=== PATIENT | female | born 1975 | race Caucasian/White ===

== ENCOUNTER 2022-09-15 13:06 | Outpatient (CLI) | payer BC, SELFPAY ==
--- NOTE | 2022-09-15 13:20 | CRLHL7_ITS ---
For Patients: As a result of the Century Cures Act, medical imaging exams and procedure reports are released immediately into your electronic medical record. You may view this report before your referring provider. If you have questions, please contact your health care provider. BILATERAL SCREENING MAMMOGRAM WITH COMPUTER-AIDED DETECTION AND TOMOSYNTHESIS TECHNIQUE: CC and MLO views were obtained. These mammographic images have been obtained using full-field digital technique. These mammographic images were interpreted with the benefit of computer-aided detection. Breast Tomosynthesis was used in this interpretation. COMPARISON FILM: 02/18/21, 02/14/20, 11/29/18. FINDINGS: There are scattered areas of fibroglandular density IMPRESSION: There is no radiographic evidence for malignancy. ASSESSMENT: BI-RADS Category 1: Negative RECOMMENDATION: Routine screening mammogram in 1 year. A lay language report of this examination will be provided to the patient. Basesm Ziegler M.D. Diagnostic Radiologist [email or web address] JENNY/Dictated by: Bassem Ziegler MD @ 09/16/2022 11:18:00 AM (Electronically Signed)
== END 2022-09-15 13:07 | disposition home or self-care (01) ==
PROVIDERS: PCP Physician Assistant; Visit Provider Physician Assistant
DX: Z12.31 Encounter for screening mammogram for malignant neoplasm of breast (principal)
CPT/HCPCS: 77063; 77067

== ENCOUNTER 2023-07-08 10:57 | Outpatient (CLI) | payer BC, SELFPAY ==
--- NOTE | 2023-07-08 11:00 | CRLHL7_ITS ---
For Patients: As a result of the Century Cures Act, medical imaging exams and procedure reports are released immediately into your electronic medical record. You may view this report before your referring provider. If you have questions, please contact your health care provider. INDICATION: dysmenorrhea COMPARISON: none TECHNIQUE: 2D norton scale and color Doppler images were acquired of the pelvis using a transabdominal and transvaginal approach. FINDINGS: Sonographic images demonstrate a normal size and smooth outer contour of the uterus. Uterus measures 9.7 cm in length by 4.9 cm in AP diameter by 6.2 cm in transverse dimension. The myometrium has a heterogeneous echotexture. The endometrial lining measures 15 mm in composite thickness. The right ovary measures 4.0 x 1.9 x 1.7 cm in size and the left ovary measures 2.6 x 1.4 x 1.2 cm. The ovaries demonstrate normal arterial and venous blood flow on color Doppler analysis. Trace pelvic free fluid noted. Small hemorrhagic cyst right ovary measuring 2.1 x 1.3 x 1.6 cm. IMPRESSION: Endometrium is heterogeneous and measures 15 millimeters. Dictated by Bassem Ziegler MD @ 07/08/2023 12:16:41 PM (Electronically Signed)
== END 2023-07-08 10:58 | disposition home or self-care (01) ==
LOC: US 10:59
PROVIDERS: PCP Family Medicine; Visit Provider Physician Assistant
DX: N94.6 Dysmenorrhea, unspecified (principal); R93.89 Abnormal findings on diagnostic imaging of other specified body structures
CPT/HCPCS: 76830; 76856; 93976

== ENCOUNTER 2023-07-13 09:06 | Outpatient (CLI) | payer BC, SELFPAY ==
--- NOTE | 2023-07-13 09:15 | CRLHL7_ITS ---
For Patients: As a result of the Century Cures Act, medical imaging exams and procedure reports are released immediately into your electronic medical record. You may view this report before your referring provider. If you have questions, please contact your health care provider. INDICATION: Back pain. Radiculopathy. COMPARISON: None. TECHNIQUE: Sagittal T1, T2, and STIR sequences. Axial T1 and T2 weighted sequences. FINDINGS: Normal vertebral body alignment. No fractures. No vertebral body loss of height. No spondylolisthesis. No ligamentous injury. Normal marrow signal. No suspicious osseous lesions. Normal conus terminates at L1. Vertebral body hemangioma L1. Scattered smaller multilevel vertebral body hemangiomas. T12-L1 L1-2 L2-3: No spinal canal or neural foraminal narrowing. L3-4: No spinal canal or neural foraminal narrowing. L4-5: Annular bulge. No narrowing of spinal canal. No neural foraminal narrowing. L5-S1: Disc generation posted disc bulge. No narrowing of spinal canal. No impingement of the traversing S1 nerve roots. Mild narrowing of the bilateral foramina. Normal visualized SI joints. Normal paraspinal soft tissues. IMPRESSION: 1. Normal alignment. No fractures. 2. Lumbar spondylosis. 3. At L5-S1, mild narrowing of the bilateral neural foramina. 4. No spinal canal or neural foraminal narrowing at the remaining levels Dictated by Judah Mullins MD @ 07/13/2023 10:49:33 AM (Electronically Signed)
== END 2023-07-13 09:07 | disposition home or self-care (01) ==
LOC: MRI 09:06
PROVIDERS: PCP Family Medicine; Visit Provider Family Medicine
DX: M54.16 Radiculopathy, lumbar region (principal); M51.27 Other intervertebral disc displacement, lumbosacral region; M47.896 Other spondylosis, lumbar region; M54.9 Dorsalgia, unspecified
CPT/HCPCS: 72148

== ENCOUNTER 2024-12-06 13:31 | Outpatient (CLI) | payer BC, SELFPAY | END 2024-12-06 13:32 | disposition home or self-care (01) | PROVIDERS: PCP Registered Nurse; Visit Provider Registered Nurse | DX: E04.1 Nontoxic single thyroid nodule (principal) | CPT/HCPCS: 84443; 84481; 86376 ==

== ENCOUNTER 2024-12-13 09:15 | Outpatient (CLI) | payer BC, SELFPAY ==
--- NOTE | 2024-12-13 09:15 | CRLHL7_ITS ---
For Patients: As a result of the Century Cures Act, medical imaging exams and procedure reports are released immediately into your electronic medical record. You may view this report before your referring provider. If you have questions, please contact your health care provider. INDICATION: Multinodular goiter. Follow up. TECHNIQUE: Conventional two-dimensional norton-scale ultrasound of the thyroid gland. COMPARISON: Thyroid ultrasound of 09/16/2021. FINDINGS: A multinodular goiter is again demonstrated. The right lobe measures 6.0 x 1.9 x 2.0 cm and the left lobe 5.4 x 1.7 x 2.1 cm. The isthmus measures 4 mm in thickness. Multiple subcentimeter nodules are again demonstrated and are not significantly changed. In the inferior right lobe are adjacent 0.9 cm heavily calcified, shadowing nodules and in the mid left lobe is a 0.9 cm TR4 nodule. Other nodules are smaller. IMPRESSION: Stable multinodular goiter. FNA not indicated. ACR TI-RADS: TR1: Benign No FNA TR2: Not Suspicious No FNA TR3: Mildly Suspicious FNA if greater than or equal to 2.5 cm Follow if greater than or equal to 1.5 cm and less than 2.5 cm TR4: Moderately Suspicious FNA if greater than or equal to 1.5 cm Follow if greater than or equal to 1 cm and less than 1.5 cm TR5: Highly Suspicious FNA if greater than or equal to 1 cm Follow if greater than or equal to 0.5 cm and less than 1.0 cm Dictated by Malcolm Arias MD @ 12/14/2024 2:30:57 PM (Electronically Signed)
== END 2024-12-13 09:16 | disposition home or self-care (01) ==
LOC: US 09:15
PROVIDERS: PCP Registered Nurse; Visit Provider Registered Nurse
DX: E04.1 Nontoxic single thyroid nodule (principal)
CPT/HCPCS: 76536

== ENCOUNTER 2024-12-19 10:33 | Outpatient (CLI) | payer BC, SELFPAY ==
[2024-12-21 04:45] LABS: HPV Source Cervix; HPV, High Risk by TMA Not Detected
== END 2024-12-19 10:34 | disposition home or self-care (01) ==
PROVIDERS: PCP Registered Nurse; Visit Provider Physician Assistant
DX: Z01.419 Encounter for gynecological examination (general) (routine) without abnormal findings (principal); E61.1 Iron deficiency; E50.9 Vitamin A deficiency, unspecified; R13.10 Dysphagia, unspecified; E04.1 Nontoxic single thyroid nodule; Z13.6 Encounter for screening for cardiovascular disorders; N95.1 Menopausal and female climacteric states; R23.2 Flushing; N92.6 Irregular menstruation, unspecified; R61 Generalized hyperhidrosis; Z13.21 Encounter for screening for nutritional disorder
CPT/HCPCS: 80061; 82306; 82728; 82947; 83540; 87624; 87625; 88141; 88142

== ENCOUNTER 2025-01-03 12:34 | Outpatient (CLI) | payer BC, SELFPAY ==
--- NOTE | 2025-01-03 13:00 | CRLHL7_ITS ---
For Patients: As a result of the Century Cures Act, medical imaging exams and procedure reports are released immediately into your electronic medical record. You may view this report before your referring provider. If you have questions, please contact your health care provider. INDICATION: Dysphagia. TECHNIQUE: CT of the neck soft tissues performed with IV contrast. Contrast: 83 cc Isovue 370. COMPARISON: Thyroid ultrasound 12/13/2024. FINDINGS: The nasopharynx, oropharynx and hypopharynx appear unremarkable. The supraglottic, glottic and infraglottic spaces are preserved. The parotid and submandibular glands appear unremarkable. Multinodular thyroid goiter. No lymphadenopathy identified. The visualized major vascular structures appear intact. The visualized intracranial components appear grossly intact. Visualized orbits and contents appear unremarkable. The paranasal sinuses are clear as visualized. Lung apices are clear. IMPRESSION: 1. Multinodular thyroid goiter, previously characterized on ultrasound 12/13/2024. 2. No lymphadenopathy. Please note that all CT scans at this facility use dose modulation, iterative reconstruction, and/or weight-based dosing when appropriate to reduce radiation dose to as low as reasonably achievable. Dictated by Gustavo Sears MD @ 01/03/2025 2:59:01 PM (Electronically Signed)
== END 2025-01-03 12:35 | disposition home or self-care (01) ==
LOC: CT 12:35
PROVIDERS: PCP Registered Nurse; Visit Provider Registered Nurse
DX: R13.10 Dysphagia, unspecified (principal); E04.2 Nontoxic multinodular goiter; M54.2 Cervicalgia
CPT/HCPCS: 70491; Q9967

== ENCOUNTER 2025-03-20 09:46 | Outpatient (CLI) | payer BC, SELFPAY ==
--- NOTE | 2025-03-20 09:45 | CRLHL7_ITS ---
For Patients: As a result of the Century Cures Act, medical imaging exams and procedure reports are released immediately into your electronic medical record. You may view this report before your referring provider. If you have questions, please contact your health care provider. INDICATION: BILATERAL SCREENING MAMMOGRAM, ASYMPTOMATIC 49 Y/O FEMALE COMPARISON: 09/15/2022, 02/18/2021, 02/14/2020 TECHNIQUE: Digital mammogram in CC and MLO projections including computer-aided detection (CAD) and tomosynthesis. BREAST COMPOSITION: There are scattered areas of fibroglandular density. FINDINGS: No suspicious findings. ASSESSMENT: BI-RADS 1 Negative RECOMMENDATION: Annual screening mammogram. A lay language report of this examination will be provided to the patient. Dictated by: Silvia Rudd MD @ 03/22/2025 09:28:20 (Electronically Signed)
== END 2025-03-20 09:47 | disposition home or self-care (01) ==
LOC: MAMMO 09:47
PROVIDERS: PCP Registered Nurse; Visit Provider Physician Assistant
DX: Z12.31 Encounter for screening mammogram for malignant neoplasm of breast (principal)
CPT/HCPCS: 77063; 77067